=== PATIENT | female | born 1995 | race Caucasian/White ===

== ENCOUNTER 2018-12-27 07:16 | Emergency (ER) | payer SELFPAY ==
--- NOTE | 2018-12-27 08:10 | EDPHYS ---
Physician Documentation [facility] Name: Hilaria Garcia Age: 23 yrs Sex: Female : 1995 Arrival Date: 12/27/2018 Time: 07:18 Bed 20 Private MD: ED Physician Warren Goodman HPI: 12/27 07:33 This 23 yrs old Female presents to ER via Ambulatory with complaints of Arm rn Injury. 07:33 The patient or guardian complains of injury, pain. The complaints affect the anterior rn aspect of left shoulder. Onset: The symptoms/episode began/occurred 2 day(s) ago. Modifying factors: The symptoms are alleviated by nothing. Associated signs and symptoms: Pertinent positives: pain. Severity of symptoms: At their worst the symptoms were mild, in the emergency department the symptoms are unchanged. The patient has not experienced similar symptoms in the past. 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 Does not feel broken.. 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 - Social history:: Smoking status: Patient/guardian denies using tobacco. - Ebola Screening: : No symptoms or risks identified at this time. - Family history:: not pertinent. - Hospitalizations: : No recent hospitalization is reported. ROS: 07:33 Constitutional: Negative for fever, chills, and weight loss, MS/Extremity: + left rn shoulder pain Neuro: Negative for headache, numbness, tingling Exam: 07:33 Constitutional: This is a well developed, well nourished patient who is awake, alert, rn and in no acute distress. Skin: Warm, dry with normal turgor. Normal color with no rashes, no lesions, and no evidence of cellulitis. MS/ Extremity: Pulses equal, no cyanosis. Neurovascular intact. Full, normal range of motion with mild pain on passive motion. Equal circumference. Vital Signs: 07:31 BP 118 / 69; Pulse 66; Resp 16; Pulse Ox 100% on R/A; Weight 60.78 kg (R); Height 5 ft. jl7 4 in. (162.56 cm) (R); Pain 8/10; 07:31 Body Mass Index 23.00 (60.78 kg, 162.56 cm) jl7 MDM: 07:20 Patient medically screened. rn 08:08 Differential diagnosis: tendonitis, tendon injury, ligament injury, muscle strain. Data rn reviewed: vital signs, nurses notes, radiologic studies, plain films, and as a result, I will discharge patient. Counseling: I had a detailed discussion with the patient and/or guardian regarding: the historical points, exam findings, and any diagnostic results supporting the discharge/admit diagnosis, radiology results, the need for outpatient follow up, to return to the emergency department if symptoms worsen or persist or if there are any questions or concerns that arise at home. Special discussion: I discussed with the patient/guardian in detail that at this point there is no indication for admission to the hospital. It is understood, however, that if the symptoms persist or worsen the patient needs to return immediately for re-evaluation. Further emergent ED testing is not indicated at this point in time. I discussed with the patient/guardian in detail the need to arrange with the PCP or specialist further outpatient testing, MRI, if symptoms dont improve.. 12/27 07:25 Order name: XRAY Shoulder LEFT 2 view rn 12/27 07:25 Order name: XRAY Chest (1 view) rn Administered Medications: No medications were administered Disposition: 12/27/18 08:09 Discharged to Home. Impression: Strain of muscle(s) and tendon(s) of the rotator cuff of left shoulder, Sprain of unspecified parts of left shoulder girdle. - Condition is Stable. - Discharge Instructions: Shoulder Pain, Shoulder Sprain. - Medication Reconciliation Form, Thank You Letter, Antibiotic Education, Prescription Opioid Use, Work release form form. - Follow up: Private Physician; When: As needed; Reason: Recheck today's complaints, Re-evaluation by your physician. - Problem is new. - Symptoms have improved. Signatures: Dispatcher [employer] EDMS Warren Goodman MD MD rn Leal, Jahala, RN RN jl7 Corrections: (The following items were deleted from the chart) 08:17 08:09 12/27/2018 08:09 Discharged to Home. Impression: Strain of muscle(s) and jl7 tendon(s) of the rotator cuff of left shoulder; Sprain of unspecified parts of left shoulder girdle. Condition is Stable. Forms are Medication Reconciliation Form, Thank You Letter, Antibiotic Education, Prescription Opioid Use. Follow up: Private Physician; When: As needed; Reason: Recheck today's complaints, Re-evaluation by your physician. Problem is new. Symptoms have improved. rn
--- NOTE | 2018-12-27 08:10 | ER ---
Nurse's Notes [facility] Name: Hilaria Garcia Age: 23 yrs Sex: Female : 1995 Arrival Date: 12/27/2018 Time: 07:18 Bed 20 Private MD: Diagnosis: Strain of muscle(s) and tendon(s) of the rotator cuff of left shoulder;Sprain of unspecified parts of left shoulder girdle Presentation: 12/27 07:29 Presenting complaint: Patient states: Pushing something at work, heard a pop in left jl7 shoulder and started having pain all through chest, back and left arm/shoulder. Transition of care: patient was not received from another setting of care. Onset of symptoms was December 26, 2015. Risk Assessment: Do you want to hurt yourself or someone else? Patient reports no desire to harm self or others. Initial Sepsis Screen: Does the patient meet any 2 criteria? No. Patient's initial sepsis screen is negative. Does the patient have a suspected source of infection? No. Patient's initial sepsis screen is negative. Care prior to arrival: None. 07:29 Method Of Arrival: Ambulatory [facility] 07:29 Acuity: SHARONDA 4 jl7 Triage Assessment: 07:31 General: Appears in no apparent distress. uncomfortable, Behavior is calm, cooperative, jl7 appropriate for age. Pain: Complains of pain in left shoulder Pain radiates to left side of chest and left side of back/shoulder and left arm Pain. EENT: No signs and/or symptoms were reported regarding the EENT system. Neuro: Level of Consciousness is awake, alert, obeys commands, Oriented to person, place, time, situation. Cardiovascular: Patient's skin is warm and dry. Respiratory: Airway is patent Respiratory effort is even, unlabored, Respiratory pattern is regular, symmetrical. GI: No signs and/or symptoms were reported involving the gastrointestinal system. : No signs and/or symptoms were reported regarding the genitourinary system. Derm: Skin is pink, warm \T\ dry. Musculoskeletal: Range of motion: intact in all extremities, Swelling absent. Injury Description: no apparent injury. 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 - Social history:: Smoking status: Patient/guardian denies using tobacco. - Ebola Screening: : No symptoms or risks identified at this time. - Family history:: not pertinent. - Hospitalizations: : No recent hospitalization is reported. Screenin:38 Abuse screen: Denies threats or abuse. Denies injuries from another. Nutritional jl7 screening: No deficits noted. Tuberculosis screening: No symptoms or risk factors identified. Fall Risk None identified. Assessment: 07:38 General: See triage assessment. jl7 Vital Signs: 07:31 BP 118 / 69; Pulse 66; Resp 16; Pulse Ox 100% on R/A; Weight 60.78 kg (R); Height 5 ft. jl7 4 in. (162.56 cm) (R); Pain 8/10; 07:31 Body Mass Index 23.00 (60.78 kg, 162.56 cm) jl7 ED Course: 07:18 Patient arrived in ED. rg4 07:20 Warren Goodman MD is Attending Physician. rn 07:21 Rosemarie Fairbanks RN is Primary Nurse. jl7 07:30 Triage completed. jl7 07:31 Arm band placed on right wrist. jl7 07:38 Patient has correct armband on for positive identification. Bed in low position. Call jl7 light in reach. Side rails up X 1. Pulse ox on. NIBP on. 07:47 X-ray completed. Portable x-ray completed in exam room. Patient tolerated procedure jb2 well. 07:49 XRAY Shoulder LEFT 2 view In Process Unspecified. EDMS 07:49 XRAY Chest (1 view) In Process Unspecified. EDMS 08:17 No provider procedures requiring assistance completed. Patient did not have IV access jl7 during this emergency room visit. Administered Medications: No medications were administered Outcome: 08:09 Discharge ordered by . rn 08:17 Discharged to home ambulatory. jl7 08:17 Condition: stable 08:17 Discharge instructions given to patient, Instructed on discharge instructions, follow up and referral plans. Demonstrated understanding of instructions, follow-up care. 08:17 Patient left the ED. jl7 Signatures: Dispatcher [employer] EDMS Rafa Maki jb2 Warren Goodman MD MD rn Garcia, Rubi rg4 Rosemarie Fairbanks RN RN jl7
[2018-12-27 08:24] VITALS: BP 118/69; O2SAT 100
--- NOTE | 2018-12-27 08:45 | RAD REPORT ---
EXAM DESCRIPTION: RAD - Shoulder Left 2 View - 12/27/2018 7:48 am CLINICAL HISTORY: Left shoulder pain FINDINGS: No fracture or dislocation is seen. No bone or joint abnormality seen
--- NOTE | 2018-12-27 08:46 | RAD REPORT ---
EXAM DESCRIPTION: Nelson Single View12/27/2018 7:48 am CLINICAL HISTORY: Chest pain COMPARISON: 2014 FINDINGS: The lungs appear clear of acute infiltrate. The heart is normal size IMPRESSION: No acute abnormalities displayed
== END 2018-12-27 08:17 | disposition home or self-care (01) ==
LOC: ER 07:16
DX: S46.012A Strain of muscle(s) and tendon(s) of the rotator cuff of left shoulder, initial encounter (principal); S43.92XA Sprain of unspecified parts of left shoulder girdle, initial encounter; X58.XXXA Exposure to other specified factors, initial encounter; Y93.89 Activity, other specified; Y92.89 Other specified places as the place of occurrence of the external cause
CPT/HCPCS: 71045; 99283

== ENCOUNTER 2019-08-05 07:51 | Emergency (ER) | payer SELFPAY ==
--- NOTE | 2019-08-05 09:06 | EDPHYS ---
Physician Documentation [facility] Name: Hilaria Garcia Age: 24 yrs Sex: Female : 1995 Arrival Date: 08/05/2019 Time: 07:53 Bed 11 Private MD: ED Physician Nikunj Steele HPI: 08/05 09:03 This 24 yrs old Female presents to ER via Ambulatory with complaints of Body kb Aches, Sore Throat, Fever. 09:03 The patient presents with sore throat. The patient describes throat pain as constant. kb The patient has not experienced similar symptoms in the past. The patient has not recently seen a physician. 09:03 Onset: The symptoms/episode began/occurred 3 day(s) ago. Severity of symptoms: At their kb worst the symptoms were moderate, in the emergency department the symptoms are unchanged. Modifying factors: The symptoms are alleviated by nothing, the symptoms are aggravated by nothing. Associated signs and symptoms: Pertinent positives: fever, flu-like symptoms, myalgias, Sore throat. Historical: - Allergies: 08:04 No Known Allergies; ss - Home Meds: 08:04 None [Active]; ss - PMHx: 08:04 None; ss - PSHx: 08:04 None; ss - Immunization history:: Adult Immunizations up to date. - Social history:: Smoking status: Patient/guardian denies using tobacco. - Ebola Screening: : Patient denies exposure to infectious person Patient denies travel to an Ebola-affected area in the 21 days before illness onset. ROS: 09:01 Neck: Negative for injury, pain, and swelling, Cardiovascular: Negative for chest pain, kb palpitations, and edema, Respiratory: Negative for shortness of breath, cough, wheezing, and pleuritic chest pain, Abdomen/GI: Negative for abdominal pain, nausea, vomiting, diarrhea, and constipation, Back: Negative for injury and pain, MS/Extremity: Negative for injury and deformity, Skin: Negative for injury, rash, and discoloration, Neuro: Negative for headache, weakness, numbness, tingling, and seizure. 09:01 Constitutional: Positive for body aches, fever, malaise. 09:01 ENT: Positive for sore throat. Exam: 09:01 Constitutional: This is a well developed, well nourished patient who is awake, alert, kb and in no acute distress. Head/Face: Normocephalic, atraumatic. ENT: Nares patent. No nasal discharge, no septal abnormalities noted. Tympanic membranes are normal and external auditory canals are clear. Oropharynx with no redness, swelling, or masses, exudates, or evidence of obstruction, uvula midline. Mucous membranes moist. Neck: Trachea midline, no thyromegaly or masses palpated, and no cervical lymphadenopathy. Supple, full range of motion without nuchal rigidity, or vertebral point tenderness. No Meningismus. Chest/axilla: Normal chest wall appearance and motion. Nontender with no deformity. No lesions are appreciated. Cardiovascular: Regular rate and rhythm with a normal S1 and S2. No gallops, murmurs, or rubs. Normal PMI, no JVD. No pulse deficits. Respiratory: Lungs have equal breath sounds bilaterally, clear to auscultation and percussion. No rales, rhonchi or wheezes noted. No increased work of breathing, no retractions or nasal flaring. Abdomen/GI: Soft, non-tender, with normal bowel sounds. No distension or tympany. No guarding or rebound. No evidence of tenderness throughout. Back: No spinal tenderness. No costovertebral tenderness. Full range of motion. Skin: Warm, dry with normal turgor. Normal color with no rashes, no lesions, and no evidence of cellulitis. MS/ Extremity: Pulses equal, no cyanosis. Neurovascular intact. Full, normal range of motion. Neuro: Awake and alert, GCS 15, oriented to person, place, time, and situation. Cranial nerves II-XII grossly intact. Motor strength 5/5 in all extremities. Sensory grossly intact. Cerebellar exam normal. Normal gait. Vital Signs: 08:04 BP 136 / 74; Pulse 90; Resp 15; Temp 98.7(TE); Pulse Ox 100% on R/A; Weight 58.97 kg; ss Height 5 ft. 4 in. (162.56 cm); Pain 7/10; 08:04 Body Mass Index 22.31 (58.97 kg, 162.56 cm) ss MDM: 08:06 Patient medically screened. kb 09:01 Data reviewed: vital signs, nurses notes. Data interpreted: Pulse oximetry: on room air kb is 100 %. Interpretation: normal. Counseling: I had a detailed discussion with the patient and/or guardian regarding: the historical points, exam findings, and any diagnostic results supporting the discharge/admit diagnosis, lab results, the need for outpatient follow up, a family practitioner, to return to the emergency department if symptoms worsen or persist or if there are any questions or concerns that arise at home. 09:02 ED course: no nuchal rigidity, pt appears nontoxic. kb 08/05 08:06 Order name: Flu; Complete Time: 08:51 ss 08/05 08:06 Order name: Strep; Complete Time: 08:43 ss 08/05 08:42 Order name: Throat Culture EDMS Administered Medications: No medications were administered Disposition: 08/06 07:14 Co-signature as Attending Physician, Nikunj Steele MD I agree with the assessment and kdr plan of care. Disposition: 08/05/19 09:06 Discharged to Home. Impression: Acute pharyngitis. - Condition is Stable. - Discharge Instructions: Pharyngitis, [id number], Sore Throat, [id number]. - Medication Reconciliation Form, Thank You Letter, Antibiotic Education, Prescription Opioid Use form. - Follow up: Emergency Department; When: As needed; Reason: Worsening of condition. Follow up: Private Physician; When: 2 - 3 days; Reason: Recheck today's complaints, Continuance of care, Re-evaluation by your physician. Signatures: Dispatcher [employer] EDMS Thuy Rendon, UTILITIES SERVICE INVESTIGATOR-C UTILITIES SERVICE INVESTIGATOR-Ckb Nikunj Steele MD MD [facility] Hermelinda Santos RN RN ss Corrections: (The following items were deleted from the chart) 08/05 09:24 09:06 08/05/2019 09:06 Discharged to Home. Impression: Acute pharyngitis. Condition is ss Stable. Forms are Medication Reconciliation Form, Thank You Letter, Antibiotic Education, Prescription Opioid Use. Follow up: Emergency Department; When: As needed; Reason: Worsening of condition. Follow up: Private Physician; When: 2 - 3 days; Reason: Recheck today's complaints, Continuance of care, Re-evaluation by your physician. kb
--- NOTE | 2019-08-05 09:06 | ER ---
Nurse's Notes [facility] Name: Hilaria Garcia Age: 24 yrs Sex: Female : 1995 Arrival Date: 08/05/2019 Time: 07:53 Bed 11 Private MD: Diagnosis: Acute pharyngitis Presentation: 08/05 08:03 Presenting complaint: Patient states: sore throat, neck stiffness, body aches and fever ss that began 3 days ago. Transition of care: patient was not received from another setting of care. Onset of symptoms was August 02, 2019. Risk Assessment: Do you want to hurt yourself or someone else? Patient reports no desire to harm self or others. Initial Sepsis Screen: Does the patient meet any 2 criteria? HR > 90 bpm. Does the patient have a suspected source of infection? No. Patient's initial sepsis screen is negative. Care prior to arrival: None. 08:03 Method Of Arrival: Ambulatory ss 08:03 Acuity: SHARONDA 4 ss Historical: - Allergies: 08:04 No Known Allergies; ss - Home Meds: 08:04 None [Active]; ss - PMHx: 08:04 None; ss - PSHx: 08:04 None; ss - Immunization history:: Adult Immunizations up to date. - Social history:: Smoking status: Patient/guardian denies using tobacco. - Ebola Screening: : Patient denies exposure to infectious person Patient denies travel to an Ebola-affected area in the 21 days before illness onset. Screenin:03 Abuse screen: Denies threats or abuse. Denies injuries from another. Nutritional ss screening: No deficits noted. Tuberculosis screening: Never had TB. Fall Risk None identified. Assessment: 08:03 General: Appears in no apparent distress. uncomfortable, Behavior is calm, cooperative. ss Pain: Complains of pain in sore throat, generalized body aches Pain currently is 7 out of 10 on a pain scale. Quality of pain is described as aching. Neuro: Level of Consciousness is awake, alert, obeys commands. Cardiovascular: Capillary refill < 3 seconds is brisk in bilateral fingers. Respiratory: Airway is patent Respiratory effort is even, unlabored, Respiratory pattern is regular, symmetrical, Breath sounds are clear bilaterally. GI: Patient currently denies diarrhea, vomiting. : No signs and/or symptoms were reported regarding the genitourinary system. EENT: Nares are clear Oral mucosa is moist. Throat is clear. Derm: Skin is intact, is healthy with good turgor, Skin is dry, Skin is pink, warm \T\ dry. normal. Musculoskeletal: Circulation, motion, and sensation intact. Range of motion: intact in all extremities, Swelling absent. Vital Signs: 08:04 BP 136 / 74; Pulse 90; Resp 15; Temp 98.7(TE); Pulse Ox 100% on R/A; Weight 58.97 kg; ss Height 5 ft. 4 in. (162.56 cm); Pain 7/10; 08:04 Body Mass Index 22.31 (58.97 kg, 162.56 cm) ss ED Course: 07:53 Patient arrived in ED. rg4 07:58 Thuy Rendon FNP-C is [facility]. kb 07:58 Nikunj Steele MD is Attending Physician. kb 08:03 Patient has correct armband on for positive identification. Bed in low position. Call ss light in reach. 08:04 Triage completed. ss 08:04 Arm band placed on left wrist. ss 09:22 Hermelinda Santos, JOSE is Primary Nurse. ss 09:24 No provider procedures requiring assistance completed. Patient did not have IV access ss during this emergency room visit. Administered Medications: No medications were administered Outcome: 09:06 Discharge ordered by . kb 09:24 Discharged to home ambulatory. ss 09:24 Condition: good 09:24 Discharge instructions given to patient, Instructed on discharge instructions, follow up and referral plans. Demonstrated understanding of instructions, follow-up care. 09:24 Patient left the ED. ss Signatures: Thuy Rendon FNP-C FNP-Ckb Smirch, Shelby, JOSE RN Sofy Wild rg4
[2019-08-05 09:31] VITALS: BP 136/74; TEMP 98.7; O2SAT 100
== END 2019-08-05 09:24 | disposition home or self-care (01) ==
LOC: ER 07:51
DX: J02.9 Acute pharyngitis, unspecified (principal)
CPT/HCPCS: 87070; 87081; 87804; 99281